=== PATIENT | female | born 2000 | race American Indian/Alaskan Native ===

== ENCOUNTER 2022-03-04 13:34 | Emergency (ER) | payer MEDICAID ==
[2022-03-04 15:01] VITALS: BP 102/71
== END 2022-03-05 03:30 | disposition left against medical advice (07) ==
LOC: ED 13:34
DX: O26.891 Other specified pregnancy related conditions, first trimester (principal); R10.9 Unspecified abdominal pain; Z53.21 Procedure and treatment not carried out due to patient leaving prior to being seen by health care provider; Z3A.10 10 weeks gestation of pregnancy